=== PATIENT | female | born 1935 | race Caucasian/White ===

== ENCOUNTER 2024-03-08 14:25 | Emergency (ER) | payer MEDICARE, SELFPAY ==
[2024-03-08] VITALS (8 sets, daily range): BP systolic 151–182; BP diastolic 63–129; PULSE 70–79; RESP 16–24; TEMP 37.1; O2SAT 94–100
--- NOTE | ~2024-03-08 | CT_ITS ---
EXAMINATION: CTA BRAIN/CAROTID DATE: 03/08/2024 14:45 INDICATION: Right-sided hemiparesis, aphasia and left-sided gaze TECHNIQUE: Computed tomographic angiography (CTA) of the head and neck was performed with 100 mL Omni paque-350 intravenous contrast. Multiplanar reconstructions and maximum intensity projection 3D-recon structions of the carotid arteries and of the intracranial arteries were created by the technologist on a separate workstation. Precontrast CT of the head was also obtained. Automated exposure control and iterative reconstruction technique were employed.The dose-length product was 1558.55 mGy-cm. COMPARISON: None. FINDINGS: Carotid arteries: Visualized aortic arch is normal in caliber with minimal nonhemodynamically significant atherosclerot ic plaque and no dissection. Bilateral vertebral arteries are codominant. There is a moderate to thelma re stenosis at the origin of the left vertebral artery. There is 25% stenosis of the right carotid bu lb relative to normal distal artery lumen diameter (NASCET criteria). There is approximately 70% sten osis of the left carotid bulb relative to normal distal artery lumen diameter. Assessment is however limited by the streak artifact associated with the dense calcific plaque. Visualized upper lungs are clear. Cervical soft tissues are unremarkable. Severe cervical spondylosis. Head: No acute intracranial hemorrhage, acute infarction or abnormal extra axial fluid collection. Small ol d lacunar infarcts at the anterior limb of the left internal capsule and in the left subinsular white matter. There is moderate scattered white matter hypoattenuation consistent with chronic small vesse l ischemic disease. Symmetric prominence of the sulci consistent with mild age-appropriate diffuse ce rebral volume loss. Ventricles are normal and symmetric. No mass/mass effect. No abnormally enhancing lesions on the postcontrast imaging. Changes of bilateral intraocular lens replacement. The orbits, paranasal sinuses and mastoid air cells are normal. Intracranial arteries Vertebral arteries are codominant. There is a 50% stenosis of the left vertebral artery distal to the takeoff of the left posterior inferior cerebellar artery. There is extensive atherosclerotic plaque along the bilateral carotid siphons with 50% stenosis at the supraclinoid portions of both the left a nd right internal carotid arteries. There is no hemodynamically significant stenosis in the basilar a rtery. There are no aneurysms identified. Both A1 and P1 segments are patent. There is a patent ant erior communicating artery. Cerebral arterial arborization appears symmetric. IMPRESSION: 1. 25% stenosis of the right carotid bulb relative to normal distal artery lumen diameter (NASCET cri teria). 2. At least 70% stenosis of the left carotid bulb relative to normal distal artery lumen diameter. As sessment is however limited by streak artifact related to dense atherosclerotic calcification at the site of the stenosis. 3. 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 No acute intracranial process. 4. Age-related changes including mild diffuse volume loss and moderate scattered white matter hypoatt enuation consistent with chronic small vessel ischemic disease. 5. 50% stenosis at the left vertebral artery and at the supraclinoid segments of the bilateral hr intern al carotid arteries. No more severe hematoma significant stenosis, aneurysm or thrombosis. Reviewed, dictated and finalized at location A. GER ER IMPRESSION: 1. 25% stenosis of the right carotid bulb relative to normal distal artery lume n diameter (NASCET criteria). 2. At least 70% stenosis of the left carotid bulb relative to normal distal art [place] lumen diameter. Assessment is however limited by streak artifact related to dense atherosclerotic calcification at the site of the stenosis. 3. 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 No acute intracranial process. 4. Age-related changes including mild diffuse volume loss and moderate scattere d white matter hypoattenuation consistent with chronic small vessel ischemic di sease. 5. 50% stenosis at the left vertebral artery and at the supraclinoid segments o f the bilateral internal carotid arteries. No more severe hematoma significant stenosis, aneurysm or thrombosis.
--- NOTE | 2024-03-08 14:23 | ECG_ITS ---
Test Date: 2024-03-08 14:48:48 Measurements Intervals [place] Rate: 79 P: 63 MS: 163 QRS: -39 QRSD: 98 T: 65 QT: 413 QTc: 474 Interpretive Statements SINUS RHYTHM WITH OCCASIONAL SUPRAVENTRICULAR PREMATURE COMPLEXES POSSIBLE LEFT ATRIAL ENLARGEMENT [-0.1mV P WAVE IN V1/V2] MARKED LEFT AXIS DEVIATION [QRS AXIS < -30] INCOMPLETE RIGHT BUNDLE BRANCH BLOCK [90+ ms QRS DURATION, TERMINAL R IN V1/V2, 40+ ms S IN I/aVL/V4/V5/V6] MODERATE ST DEPRESSION [0.05+ mV ST DEPRESSION] No previous ECG available for comparison Electronically Signed On 03-08-2024 16:18:17 [employer] by Naheed Cheng
[2024-03-08 14:31] LABS: Basophils Percent Auto 0.4 % (0.2-1.2); Eosinophils Absolute Auto 0.1 K/mm3 (0-0.3); Eosinophils Percent Auto 0.6 % (0-4.4); Hematocrit 35.7 % (37.0-47.0); Hemoglobin 11.7 g/dL (12.0-15.0); Immature Granulocyte Absolute 0.03 K/mm3 (0.00-0.031); Immature Granulocyte Percent A 0.3 % (0-0.5); Mean Corpuscular HGB Conc 32.8 g/dl (32-36); Mean Corpuscular Hemoglobin 30.1 pg (26-34); Mean Corpuscular Volume 91.8 fl (80-100); Mean Platelet Volume 9.7 fl (7.4-10.4); Monocytes Absolute Auto 0.9 K/mm3 (0.1-0.6); Monocytes Percent Auto 8.7 % (2.6-8.5); Neutrophils Absolute Auto 6.4 K/mm3 (1.3-6.7); Platelet Count Result 245 k/mm3 (150-375); Red Blood Count 3.89 M/mm3 (4.2-5.4); Red Cell Distribution Width 13.9 % (11.5-14.5)
[2024-03-08 14:42] LABS: INR 1.1; Prothrombin Time 14.2 Seconds (11.1-14.7)
--- NOTE | 2024-03-08 15:06 | ED.NEUROSD ---
HPI - Neuro Symptoms/Deficit General Chief Complaint: Suspected CVA Stated Complaint: cva, AMS History of Present Illness HPI Narrative: Patient has been seen by her neighbor around 11:40 a.m. this morning, when she left patient had been appearing normal, and she called 1 of her daughters around noon and had sounded normal on the phone then. However around 1pm, she called another daughter and at the time was just speaking gibberish. EMS called when they arrived, she was no longer able to talk at all or move her right side Related Data Home Medications ?Medication ?Instructions ?Recorded ?Confirmed ?Last Taken ?Type albuterol 90 mcg/actuation aerosol 90 mcg inhalation PRN 03/08/24 03/08/24 Unknown History inhaler escitalopram oxalate 20 mg tablet 20 mg PO DAILY 03/08/24 03/08/24 03/08/24 History latanoprost 0.005 % eye drops 1 drp EACH EYE HS 03/08/24 03/08/24 03/08/24 History lisinopril 40 mg tablet 40 mg PO DAILY 03/08/24 03/08/24 03/08/24 History lorazepam 0.5 mg tablet (Ativan) 0.5 mg PO DAILY 03/08/24 03/08/24 Unknown History omeprazole 20 mg capsule,delayed 20 mg PO DAILY 03/08/24 03/08/24 03/08/24 History release oxybutynin chloride 10 mg 10 mg PO DAILY 03/08/24 03/08/24 03/08/24 History tablet,extended release 24 hr trazodone 50 mg tablet 50 mg PO HS 03/08/24 03/08/24 Unknown History Allergies Allergy/AdvReac Type Severity Reaction Status Date / Time No Known Allergies Allergy Unverified 03/08/24 14:53 Review of Systems Review of Systems: ROS unobtainable: Yes unobtainable due to medical condition [facility] Social History Social History Smoking status: Never smoker Alcohol intake: current Exam Narrative: EXAMINATION OF ORGAN SYSTEMS/BODY AREAS: Constitutional: Vital signs per nursing GENERAL: Appears very anxious HEAD: Normal with no signs of head trauma. EYES: left gaze deviation ENT: facial droop LUNGS: Nonlabored breathing. HEART: [Regular rate and rhythm] ABD: [Soft], [nontender to palpation] EXT: able to move left side, able to slightly move right side with painful stimulus but much weaker than left SKIN: [No rashes or lesions.] NEURO: [Alert. aphasic. Does not seem to understand commands. Right facial droop and right-sided weakness.] Course Vital Signs Vital signs: Vital Signs Temperature 98.7 F 03/08/24 14:38 Pulse Rate 79 03/08/24 14:38 Respiratory Rate 18 03/08/24 14:38 Blood Pressure 182/99 H 03/08/24 14:38 Pulse Oximetry 100 03/08/24 14:38 Oxygen Delivery Room Air 03/08/24 14:38 Temperature 98.7 F 03/08/24 14:38 Pulse Rate 79 03/08/24 15:31 Respiratory Rate 23 H 03/08/24 15:31 Blood Pressure 182/84 H 03/08/24 15:31 Pulse Oximetry 98 03/08/24 15:31 Oxygen Delivery Room Air 03/08/24 14:38 MDM - Neuro Symptoms/Deficit MDM Narrative Medical decision making narrative: 88F onset R sided weakness, aphasia, within 3 hours LNW. NIHSS 17-19. D/w daughter POA who is pharmacist; per daughter, patient DNR/ DNI, would not like invasive measures, however would not like to live like this, she would like to have TNK if it gives better chance of neurologic recovery. Understands risks of bleeding/. Tenecteplase Administered? Yes, Verbal Informed Consent Obtained from: Daughter (POA) at bedside Family: Discussions to obtain informed consent for tenecteplase included: risk of bleeding, including in the brain, that can result in ; benefit of decreased functional disability; as well as alternatives, including no treatment or conservative treatment with antiplatelet therapy. D/w Dr Galo stroke neuro who agrees with TNK. TNK administered. Discussed again with neurologist and radiologist, no intervention advised at this time without any large vessel occlusion, family would really prefer transfer to [facility], so I have discussed this with the ICU Dr. Higginbotham who accepts patient. Lab Data 03/08/24 14:25 03/08/24 14:25 Labs: Lab Results 03/08/24 03/08/24 Range/Units 14:25 15:19 WBC 10.0 (4.5-10.0) K/mm3 RBC 3.89 L (4.2-5.4) M/mm3 Hgb 11.7 L (12.0-15.0) g/dL Hct 35.7 L (37.0-47.0) % MCV 91.8 (80-100) fl MCH 30.1 (26-34) pg MCHC 32.8 (32-36) g/dl RDW 13.9 (11.5-14.5) % Plt Count 245 (150-375) k/mm3 MPV 9.7 (7.4-10.4) fl Immature Gran % (Auto) 0.3 (0-0.5) % Neut % (Auto) 64.0 (45.5-73.1) % Lymph % (Auto) 26.0 (18.3-44.2) % [place] % (Auto) 8.7 H (2.6-8.5) % Eos % (Auto) 0.6 (0-4.4) % Baso % (Auto) 0.4 (0.2-1.2) % Lymph # (Auto) 2.60 (0.9-3.2) K/mm3 [place] # (Auto) 0.9 H (0.1-0.6) K/mm3 Eos # (Auto) 0.1 (0-0.3) K/mm3 Baso # (Auto) 0.0 (0.0-0.1) K/mm3 Abs Immat Gran (auto) 0.03 (0.00-0.031) K/mm3 Absolute Neuts (auto) 6.4 (1.3-6.7) K/mm3 Absolute Nucleated RBC 0.000 (0.0-0.012) K/mm3 Nucleated RBC % 0.0 (0.0-0.2) % PT 14.2 (11.1-14.7) Seconds INR 1.1 APTT 27.0 (22.3-36.8) Seconds Sodium 131 L (137-145) mmol/L Potassium 3.8 (3.4-5.0) mmol/L Chloride 98 (98-107) mmol/L Carbon Dioxide 27 (22-30) mmol/L Anion Gap 6 (4-12) mmol/L BUN 27 H (7-17) mg/dL Creatinine 0.90 (0.7-1.0) mg/dL Estim Creat Clear Calc 37 ml/min Estimated GFR 59 (59 - ) Glucose 111 H (65-110) mg/dL Calcium 9.5 (8.4-10.2) mg/dL Total Bilirubin 0.5 (0.2-1.3) mg/dL AST 32 (14-36) U/L ALT 21 (6-35) U/L Alkaline Phosphatase 81 (38-126) U/L Troponin I < 0.012 (0.000-0.034) ng/mL Total Protein 7.0 (6.3-8.2) g/dL Albumin 4.1 (3.5-5.1) g/dL Blood Type A Positive Antibody Screen Negative Critical Care Time Critical Care Time Critical Care Time: Yes Total Critical Care Time: 61 Discharge Plan Discharge Clinical Impression: Acute right-sided weakness, Aphasia Patient Disposition: Acute Care Hospital Condition: Serious Patient Language: Pashto Prescriptions: No Action escitalopram oxalate 20 mg tablet 20 mg PO DAILY trazodone 50 mg tablet 50 mg PO HS lisinopril 40 mg tablet 40 mg PO DAILY oxybutynin chloride 10 mg tablet extended release 24hr 10 mg PO DAILY omeprazole 20 mg capsule,delayed release(DR/EC) 20 mg PO DAILY latanoprost 0.005 % drops 1 drp EACH EYE HS lorazepam [Ativan] 0.5 mg tablet 0.5 mg PO DAILY albuterol 90 mcg/actuation aerosol 90 mcg inhalation PRN Follow-up/Referrals: Shaggy,Melly Collado MD [Primary Care Provider] - Quality Stroke Date of last known normal: 03/08/24 Time of last known normal: 11:40 Stroke Scale Stroke Scale 1: Stroke scale date:: 03/08/24 Stroke scale time:: 14:25 1a Level of consciousness: alert-0 1b Level of consciousness questions: answers none correctly-2 1c Level of consciousness commands: obeys neither correctly-2 2 Best gaze: forced deviation-2 3 Visual: no visual loss-0 4 Facial palsy: minor paralysis-1 5a Motor: left arm: no drift-0 5b Motor: right arm: some effort/gravity-2 6a Motor: left leg: no drift-0 6b Motor: right leg: some effort/gravity-2 7 Limb ataxia: absent-0 8 Sensory: normal-0 9 Best language: mute, global aphasia-3 10 Dysarthria: unitelligible or mute-2 11 Extinction and inattention: partial inattention-1 Level:: 17
[2024-03-08] MEDS: TENECTEPLASE 50 MG/10 ML VIAL 17.7 MG IV PUSH (15:11)
[2024-03-08 15:15] LABS: Alanine Aminotransferase 21 U/L (6-35); Albumin Level 4.1 g/dL (3.5-5.1); Alkaline Phosphatase 81 U/L (38-126); Anion Gap 6 mmol/L (4-12); Aspartate Amino Transferase 32 U/L (14-36); Bilirubin,Total 0.5 mg/dL (0.2-1.3); Blood Urea Nitrogen 27 mg/dL (7-17); Calcium 9.5 mg/dL (8.4-10.2); Carbon Dioxide 27 mmol/L (22-30); Chloride 98 mmol/L (98-107); Estimated CRCL calculation 37 ml/min; Estimated Glomerular Filt Rate 59; Glucose 111 mg/dL (65-110); Potassium 3.8 mmol/L (3.4-5.0); Sodium 131 mmol/L (137-145)
[2024-03-08 15:26] LABS: Troponin I < 0.012 ng/mL (0.000-0.034)
[2024-03-08] MEDS: LORazepam INJ (*CRX) 2 MG/ML VIAL 1 MG IV PUSH ×2 (15:36→17:21)
[2024-03-08] MEDS: hydrALAZINE HCL 20 MG/ML VIAL 10 MG IV PUSH (17:22)
[2024-03-12 11:57] LABS: Glucose Point of Care 103 mg/dl (65-105)
== END 2024-03-08 18:19 | disposition short-term general hospital (02) ==
PROVIDERS: Emergency Provider Emergency Medicine; PCP Internal Medicine
DX: R47.01 Aphasia (principal); R53.1 Weakness; Z66 Do not resuscitate; Z79.899 Other long term (current) drug therapy; R94.31 Abnormal electrocardiogram [ECG] [EKG]; I45.10 Unspecified right bundle-branch block
CPT/HCPCS: 36415; 70496; 70498; 80053; 82948; 84484; 85025; 85610; 85730; 86850; 86900; 86901; 93005; 96374; 96375; 96376; 99285; J0360; J2060; J3101; Q9967